=== PATIENT | male | born 1965 | race Caucasian/White ===

== ENCOUNTER 2018-05-29 19:08 | Inpatient (IN) | payer OTHER ==
[~2018-05-29] VITALS: Ht 167.6 cm; Wt 118.0 kg
[~2018-05-29 19:08] MED LIST: DICLOFENAC SODI75 M2 PO; ORPHENADRINE C100 MG PO
--- NOTE | 2018-05-29 19:24 | ED GI/GU/ABDOMINAL COMPLAINT ---
History of Present Illness General Chief Complaint: Abdominal Pain/Flank Pain Stated Complaint: "ABD PAIN, SOB" Source: patient Exam Limitations: no limitations Vital Signs & Intake/Output Vital Signs & Intake/Output Vital Signs Date Time Temp Pulse Resp B/P B/P Pulse O2 O2 Flow FiO2 Mean Ox Delivery Rate 05/30 0309 97.9 70 20 138/60 97 Room Air 05/30 0219 97.2 70 18 127/71 98 Room Air 05/30 0018 97 Room Air 05/30 0016 97.6 70 18 139/71 97 Room Air 05/29 2152 76 17 152/91 96 Room Air 05/29 1917 97.8 79 18 144/84 98 Room Air ED Intake and Output 05/30 0000 05/29 1200 Intake Total Output Total Balance Patient 254 lb Weight Weight Reported by Patient Measurement Method Allergies Coded Allergies: morphine (Mild, RASH 05/18/16) ziprasidone (RESTLESS LEGS WHEN TOTAL DAILY DOSE GIVEN AT BEDTIME 05/18/16) Reconcile Medications Allopurinol 100 MG TABLET 1 TAB PO QHS GOUT (Reported) Bupropion HCl (Wellbutrin XL) 150 MG TAB.ER.24H 1 TAB PO DAILY MENTAL HEALTH (Reported) Diclofenac Sodium 75 MG TABLET.DR 1 TAB PO BID PRN PAIN Ezetimibe (Zetia) 10 MG TABLET 1 TAB PO DAILY HEART HEALTH (Reported) Ibuprofen 800 MG TABLET 1 TAB PO QHS PRN RT SHOULDER PAIN (Reported) Meloxicam 7.5 MG TABLET 1 TAB PO DAILY PRN PAIN (Reported) Orphenadrine Citrate 100 MG TABLET.ER 1 TAB PO BID PRN MUSCLE PAIN/SPASMS Topiramate (Topamax) 25 MG TABLET 1 TAB PO BID MENTAL HEALTH (Reported) Triage Note: PT FROM HOME C/O BACK PAIN MID PAIN X3 DAYS RADIATING TO PTS ABD BILATERALLY, PT STATES SOB WHEN DEEP BREATHING. PT STATES TAKING 400MG MOTRIN PO X1 HR PRIOR WITHOUT RELIEF. PT STATES PAIN INCREASING FOR THE PAST 3X DAYS WITHOUT SEEING ANY OTHER PROVIDERS. Triage Nurses Notes Reviewed? yes Duration: day(s):, waxing and waning Timing: recent history Location: right upper quadrant Radiation: back Activities at Onset: none Prior Abdominal Problems: none Modifying Factors: Worsens With: palpation. Associated Symptoms: abdominal pain, nausea/vomiting HPI: 52 yo gentleman in prior good health presents with 3 days of right upper quadrant pain, mild nausea. "I took some tums... I thought it was gastritis... but the pain got worse." No fever, chills, chest pain, dyspnea. He is otherwise well. Past History Travel History Traveled to [place] past 21 day No Medical History Any Pertinent Medical History? see below for history Neurological: NONE EENT: NONE Cardiovascular: hypertension, hyperlipidemia Respiratory: NONE Gastrointestinal: NONE Hepatic: NONE Renal: NONE Musculoskeletal: fracture, sciatica, "BACK AND NECK PROBLEMS" FRACTURED JAW Psychiatric: bipolar disease, depression Endocrine: NONE Blood Disorders: NONE Surgical History Surgical History: non-contributory Psychosocial History What is your primary language Wolof Tobacco Use: Never used ETOH Use: denies use Family History Hx Contributory? No Review of Systems Review of Systems Constitutional: Reports: no symptoms. EENTM: Reports: no symptoms. Respiratory: Reports: no symptoms. Cardiovascular: Reports: no symptoms. GI: Reports: no symptoms. Genitourinary: Reports: no symptoms. Musculoskeletal: Reports: no symptoms. Skin: Reports: no symptoms. Neurological/Psychological: Reports: no symptoms. Hematologic/Endocrine: Reports: no symptoms. Immunologic/Allergic: Reports: no symptoms. All Other Systems: Reviewed and Negative Physical Exam Physical Exam General Appearance: well developed/nourished, mild distress Head: atraumatic, normal appearance Eyes: Bilateral: normal appearance. Ears, Nose, Throat, Mouth: hearing grossly normal, moist mucous membrane Neck: normal inspection, supple, full range of motion Respiratory: normal breath sounds, chest non-tender, no respiratory distress, quiet respiration, lungs clear Cardiovascular: regular rate/rhythm Gastrointestinal: tender at ruq, +juan's, no rlq tenderness. no rebound or guarding. Extremities: normal range of motion Neurologic/Psych: no motor/sensory deficits, awake, alert, oriented x 3 Skin: intact, normal color, warm/dry Core Measures ACS in differential dx? No Sepsis Present: No Sepsis Focused Exam Completed? No Progress Differential Diagnosis: cholecystitis vs other. Plan of Care: Orders Procedure Date/time Status Nothing by Mouth 05/30 B Active HEPATIC FUNCTION PANEL 05/30 600 Active CBC WITHOUT DIFFERENTIAL 05/30 600 Active BASIC ELECTROLYTES PLUS BUN&CR 05/30 600 Active Code Status 05/30 0158 Active Lab Add-on Test 05/30 0104 Active Intake & Output 05/30 0014 Active Pathway - chart 05/29 2357 Active House Staff 05/29 235 Active Patient Data 05/29 235 Active Code Status 05/29 235 Complete Saline Lock 05/29 2342 Active Misc Message 05/29 234 Active ED Holding Orders 05/29 2342 Active Admit to inpatient 05/29 234 Active Vital Signs 05/29 2342 Active Code Status 05/29 234 Complete Add-on Test (ER Only) 05/29 2228 Active TRIGLYCERIDES 05/29 1950 Complete LDH (LACT ACID DEHYDROGENASE) 05/29 1950 Complete ETHANOL 05/29 1950 Complete TROPONIN LEVEL 05/29 1919 Complete LIPASE 05/29 1919 Complete LACTIC ACID 05/29 1919 Complete HEPATIC FUNCTION PANEL 05/29 1919 Complete CBC WITHOUT DIFFERENTIAL 05/29 1919 Complete BASIC METABOLIC PANEL 05/29 1919 Complete AMYLASE 05/29 1919 Complete EKG 05/29 1910 Active VTE Mechanical Prophylaxis 05/29 UNK Active Current Medications Sig/Tatiana Start time Last Medication Dose Stop Time Status Admin Bupropion HCl 150 MG DAILY 05/30 900 AC (Wellbutrin XL) Enoxaparin Sodium 40 MG DAILY 05/30 900 AC (Lovenox) Ezetimibe 10 MG DAILY 05/30 900 AC (Zetia) Topiramate 25 MG BID 05/30 900 AC (Topamax) Lactated Ringer's 1,000 ML .Q6H40M 05/30 0315 AC 05/30 (Lactated Ringers) 0300 Hydromorphone HCl 0.2 MG Q4P PRN 05/30 0115 AC (Dilaudid) Hydromorphone HCl 0.4 MG Q4P PRN 05/30 0115 AC 05/30 (Dilaudid) 0313 Acetaminophen 650 MG Q6P PRN 05/29 2345 AC (Tylenol) Laboratory Tests 05/29/18 1950: Anion Gap 10, Estimated GFR > 60, BUN/Creatinine Ratio 24.4, Glucose 155 H, Lactic Acid 1.3, Calcium 9.4, Total Bilirubin 2.6 H, Direct Bilirubin 1.8 H, AST 268 H, ALT 289 H, Alkaline Phosphatase 102, Lactate Dehydrogenase 1016 H, Troponin I < 0.01, Total Protein 6.9, Albumin 4.1, Triglycerides 148, Amylase 3785 H, Lipase > 41372 H, CBC w Diff NO MAN DIFF REQ, RBC 5.16, MCV 86.9, MCH 29.7, MCHC 34.2, RDW 12.2, MPV 8.3, Gran % 70.9, Lymphocytes % 19.4 L, Monocytes % 8.5, Eosinophils % 0.9, Basophils % 0.3, Absolute Granulocytes 6.2, Absolute Lymphocytes 1.7, Absolute Monocytes 0.7 H, Absolute Eosinophils 0.1, Absolute Basophils 0, Serum Alcohol < 10.0 Diagnostic Imaging: Viewed by Me: CT Scan. Discussed w/RAD: CT Scan. Radiology Impression: PATIENT: ROJELIO JUNG PRESENT AGE: 52 PATIENT ACCOUNT NO: [id number] : 67 LOCATION: [facility] ORDERING PHYSICIAN: Mode Garg MD SERVICE DATE: 05/29/18 EXAM TYPE: CAT - CT ABD & PELVIS W IV CONTRAST EXAMINATION: CT ABDOMEN AND PELVIS WITH CONTRAST CLINICAL INFORMATION: Right upper quadrant pain COMPARISON: None TECHNIQUE: Multidetector volumetric imaging was performed of the abdomen and pelvis following IV administration of 95 mL of Optiray 320 intravenous contrast. Sagittal and coronal reformatted images were obtained on the technologist's workstation. DLP: 1237 mGy-cm FINDINGS: LUNG BASES: The visualized lung bases are unremarkable. LIVER, GALLBLADDER, AND BILIARY TREE: Liver is diffusely low in attenuation. No focal lesion identified. No intrahepatic biliary dilatation. The gallbladder is mildly distended. No wall edema or pericholecystic fluid. No radio dense gallstones. PANCREAS: Unremarkable. SPLEEN: The spleen is enlarged measuring 14.5 cm. ADRENAL GLANDS: Unremarkable. KIDNEYS AND URETERS: The kidneys are normal in size, shape, and attenuation. No hydronephrosis, hydroureter, or calculi seen. No perinephric stranding. BLADDER: Unremarkable. GASTROINTESTINAL TRACT: Small hiatal hernia is present. There are a few mildly prominent lymph nodes inferior to the gastroesophageal junction measuring up to approximately 0.7 cm in short axis diameter. There are no dilated loops of small or large bowel. The appendix is normal. No intra-abdominal free air or free fluid. ABDOMINAL WALL: No significant hernia is appreciated. LYMPH NODES: Normal. VASCULAR: Unremarkable. PELVIC VISCERA: Prostate and seminal vesicles appear within normal limits. OSSEOUS STRUCTURES: Unremarkable. IMPRESSION: 1. No convincing CT evidence for acute cholecystitis. No CT evidence for cholelithiasis. 2. Hepatic steatosis. 3. Splenomegaly. 4. Mild inflammatory changes adjacent to the gastroesophageal junction. Small hiatal hernia. DICTATED BY: Celia Orr MD DATE/TIME DICTATED:05/29/182212 SATURATION EQUIPMENT OPERATOR:JER DATE/TIME TRANSCRIBED:05/29/182212 CONFIDENTIAL, DO NOT COPY WITHOUT APPROPRIATE AUTHORIZATION. <Electronically signed in Other Vendor System> SIGNED BY: Celia Orr MD 05/29/182220 Initial ED EKG: sinus, no acute changes Departure Departure Disposition: STILL A PATIENT Condition: Stable Clinical Impression Primary Impression: Pancreatitis Secondary Impressions: Elevated LFTs Referrals: Lamont Aquino MD (PCP/Family) Departure Forms: Customer Survey General Discharge Information Admission Note Spoke With: Lamont Aquino MD Documentation of Exam: Documentation of any treatments & extenuating circumstances including Concerns Regarding Discharge (functional status, medication knowledge or non-compliance, living conditions, etc.) that warrant an admission rather than observation: pt with pancreatitis, lipase >10,000... ct scan not suggestive of gallstones. pt is non drinking. triglycerides normal. pt merits iv fluids, gi consult in AM.
[2018-05-29 19:58] LABS: ABSOLUTE BASOPHIL COUNT 0 /CUMM (0.0-0.2); ABSOLUTE EOSINOPHIL COUNT 0.1 /CUMM (0.0-0.7); ABSOLUTE GRANULOCYTE CT 6.2 /CUMM (1.4-6.5); ABSOLUTE LYMPH COUNT 1.7 /CUMM (1.2-3.4); ABSOLUTE MONOCYTE COUNT 0.7 /CUMM (0.10-0.60); BASOPHIL % 0.3 % (0.0-2.0); EOSINOPHIL % 0.9 % (0-5); GRANULOCYTE % 70.9 % (42.2-75.2); HEMATOCRIT 44.8 % (42-52); MEAN CORPUSCULAR HGB 29.7 PG (27.0-31.0); MEAN CORPUSCULAR HGB CONC 34.2 G/DL (33.0-37.0); MEAN CORPUSCULAR VOLUME 86.9 FL (80.0-94.0); MEAN PLATELET VOLUME 8.3 FL (7.4-10.4); PLATELET COUNT 220 /CUMM (130-400); RBC DISTRIBUTION WIDTH 12.2 % (11.5-14.5); RED BLOOD CELL CT 5.16 /CUMM (4.70-6.10); WHITE BLOOD CELL COUNT 8.7 /CUMM (4.8-10.8)
--- NOTE | 2018-05-29 22:21 | CT SCAN REPORT ---
EXAMINATION: CT ABDOMEN AND PELVIS WITH CONTRAST CLINICAL INFORMATION: Right upper quadrant pain COMPARISON: None TECHNIQUE: Multidetector volumetric imaging was performed of the abdomen and pelvis following IV administration of 95 mL of Optiray 320 intravenous contrast. Sagittal and coronal reformatted images were obtained on the technologist's workstation. DLP: 1237 mGy-cm FINDINGS: LUNG BASES: The visualized lung bases are unremarkable. LIVER, GALLBLADDER, AND BILIARY TREE: Liver is diffusely low in attenuation. No focal lesion identified. No intrahepatic biliary dilatation. The gallbladder is mildly distended. No wall edema or pericholecystic fluid. No radio dense gallstones. PANCREAS: Unremarkable. SPLEEN: The spleen is enlarged measuring 14.5 cm. ADRENAL GLANDS: Unremarkable. KIDNEYS AND URETERS: The kidneys are normal in size, shape, and attenuation. No hydronephrosis, hydroureter, or calculi seen. No perinephric stranding. BLADDER: Unremarkable. GASTROINTESTINAL TRACT: Small hiatal hernia is present. There are a few mildly prominent lymph nodes inferior to the gastroesophageal junction measuring up to approximately 0.7 cm in short axis diameter. There are no dilated loops of small or large bowel. The appendix is normal. No intra-abdominal free air or free fluid. ABDOMINAL WALL: No significant hernia is appreciated. LYMPH NODES: Normal. VASCULAR: Unremarkable. PELVIC VISCERA: Prostate and seminal vesicles appear within normal limits. OSSEOUS STRUCTURES: Unremarkable. IMPRESSION: 1. No convincing CT evidence for acute cholecystitis. No CT evidence for cholelithiasis. 2. Hepatic steatosis. 3. Splenomegaly. 4. Mild inflammatory changes adjacent to the gastroesophageal junction. Small hiatal hernia.
--- NOTE | 2018-05-29 23:49 | History & Physical ---
See Addendum Tamika Lopez 05/29/18 6059: General Information and HPI MD Statement: I have seen and personally examined ROJELIO JUNG and documented this H&P. The patient is a 52 year old M who presented with a patient stated chief complaint of [back pain and abdominal pain 3 days]. Source of Information: patient Exam Limitations: no limitations History of Present Illness: 52-year-old male with a past medical history of hypertension, cardiac arrhythmia , TIA, cocaine abuse, hypercholesterolemia, bipolar disorder, asthma, presented to the emergency department for evaluation of abdominal and back pain 3 days. The patient states that 3 days ago he started having a severe back pain, which was sudden in onset, intensity 10 x 10, throbbing aching and stabbing, worsening with time, moving to the side of his body to his belly, worse on taking a deep breath, not relieved by ibuprofen 800 mg. It was so bad that it prevented him from walking and he was in bed all day on his side and he could not lay on flat on his back He also developed epigastric pain on day 2, sudden in onset, which was achy and became stabbing on taking a deep breath or breathing rapidly, 10 x 10 in intensity, radiating to the back. Patient reports eating a lot of fried food, last meal was fried chicken from [employer]. He denies use of smoking/alcohol/illicit drugs. Patient denies nausea , vomiting, fever, chills, loss of appetite, change in bowel or bladder habits, change in vision, change in hearing. Please note allergies: Morphine been given IV causes a local reaction at the site of the IV line: Redness and swelling. He reports this reaction in the Allergies/Medications Allergies: Coded Allergies: morphine (Mild, RASH 05/18/16) ziprasidone (RESTLESS LEGS WHEN TOTAL DAILY DOSE GIVEN AT BEDTIME 05/18/16) Past History Travel History Traveled to [place] past 21 day No Medical History Neurological: NONE EENT: NONE Cardiovascular: hypertension, hyperlipidemia Respiratory: NONE Gastrointestinal: NONE Hepatic: NONE Renal: NONE Musculoskeletal: fracture, sciatica, "BACK AND NECK PROBLEMS" FRACTURED JAW Psychiatric: bipolar disease, depression Endocrine: NONE Blood Disorders: NONE Surgical History Surgical History: non-contributory Past Family/Social History Family History Relations & Conditions if any FH: diabetes mellitus Relation not specified FHx: heart disease Relation not specified FHx: hypertension Relation not specified FHx: stroke Relation not specified Psychosocial History Where do you live? Home Who Do You Live With? family Services at Home: None Primary Language: Irish Smoking Status: Never Smoked ETOH Use: denies use Illicit Drug Use: denies illicit drug use Functional Ability ADLs Independent: dressing, eating, toileting, bathing. Ambulation: independent IADLs Independent: shopping, housework, finances, food prep, telephone, transportation , medication admin. Employment History Employment Employed Review of Systems Review of Systems Constitutional: Reports: see HPI. EENTM: Reports: no symptoms. Cardiovascular: Reports: no symptoms. Respiratory: Reports: see HPI. GI: Reports: see HPI. Genitourinary: Reports: no symptoms. Musculoskeletal: Reports: no symptoms. Skin: Reports: no symptoms. Neurological/Psychological: Reports: no symptoms. Hematologic/Endocrine: Reports: no symptoms. Immunologic/Allergic: Reports: no symptoms. All Other Systems: Reviewed and Negative Exam & Diagnostic Data Last 24 Hrs of Vital Signs/I&O Vital Signs Date Time Temp Pulse Resp B/P B/P Pulse O2 O2 Flow FiO2 Mean Ox Delivery Rate 05/30 0219 97.2 70 18 127/71 98 Room Air 05/30 0018 97 Room Air 05/30 0016 97.6 70 18 139/71 97 Room Air 05/29 2152 76 17 152/91 96 Room Air 05/29 1917 97.8 79 18 144/84 98 Room Air Intake & Output 05/30 0800 05/30 0000 05/29 1600 Intake Total 0 Output Total Balance 0 Intake, Oral 0 Patient 254 lb Weight Weight Reported by Patient Measurement Method Physical Exam General Appearance Alert, Oriented X3, Cooperative, No Acute Distress Skin No Rashes, No Breakdown, No Significant Lesion Skin Temp/Moisture Exam: Cool/Dry Sepsis Skin Exam (color): Normal for Ethnicity HEENT Atraumatic, PERRLA, EOMI, Mucous Membr. moist/pink Neck Supple, No JVD, No thryomegaly, +2 Carotid Pulse wo Bruit, No LAD Cardiovascular Regular Rate, Normal S1, Normal S2, No Murmurs Lungs Clear to Auscultation, Normal Air Movement Abdomen Normal Bowel Sounds, Soft, No Tenderness, No Hepatospenomegaly, No Masses Neurological Normal Speech, Normal Tone, Sensation Intact, Reflexes 2+ Extremities No Clubbing, No Cyanosis, No Edema, Normal Pulses, No Tenderness/ Swelling Assessment/Plan Assessment: 52-year-old male with a past medical history of hypertension, cardiac arrhythmia , TIA, cocaine abuse, hypercholesterolemia, bipolar disorder, asthma, presented to the emergency department for evaluation of abdominal and back pain 3 days. Vital signs: Temp 97.8, heart rate 79, respiratory rate 18, blood pressure 144/ 84, 98% room air Pertinent labs: WBC 8.7, RBC 5.16, hemoglobin 15.3, hematocrit 44.8, platelets 220, sodium 139, potassium 4.0, chloride 109, carbon dioxide 20, anion gap 10, BUN 22, creatinine 0.9, lipase more than 10,000, amylase 3785, glucose 155, total bilirubin 2.6, direct bilirubin 1.8, AST, 268, ALT 289, serum alcohol less than 10 Abdomen/pelvis CT: No convincing CT evidence for acute cholecystitis and no evidence of cholelithiasis as well. hepatic steatosis and splenomegaly were seen. mild inflammatory changes adjacent to the GE junction and small hiatal hernia Problems: Pancreatitis Transaminitis Hypertension Assessment and plan: 1.pancreatitis: Patient presents with an epigastric pain radiating to the back, lipase more than 10,000 and amylase 3785. Patient has pancreatitis as the most likely diagnosis. The etiology for the pancreatitis appears to be fried and fatty food at this time. -Admit patient to the general medical floor -Keep patient n.p.o. -Start IV fluids Ringer's lactate at 1 50 mL/h, monitor blood pressure -Supportive care and pain management(Dilaudid) 2.transaminitis: Patient has transaminitis with AST 268, ALT 289, total bilirubin 2.6, direct bilirubin 1.8. The cause of the transaminitis is unknown at this time we will follow the labs by repeating the LFTs in the morning at 6 AM. If the patient still shows transaminitis as per the blood work we might consider doing viral serologies/hepatitis panel and a right upper quadrant ultrasound. 3.hypertension: The patient's blood pressure appears stable at this time (144/84 ). Patient does not report any home medications for blood pressure. With Ringer's lactate patient has risk of having elevation of blood pressure. Vitals and blood pressure will be monitored during his hospital stay. DVT prophylaxis: Lovenox 40 mg subcu Diet: N.p.o. CODE STATUS: DNR/DNI As Ranked By This Provider Problem List: 1. Pancreatitis Core Measures/Misc (06/13) Acute Coronary Syndrome ACS Diagnosis: No Congestive Heart Failure Congestive Heart Failure Diagnosis No Cerebrovascular Accident CVA/TIA Diagnosis: No VTE (View Protocol) VTE Risk Factors Age>40 No Mechanical VTE Prophylaxis d/t N/A MechProphylax Ordered No VTE Pharm Prophylaxis d/t NA PharmProphylax ordered Sepsis (View protocol) Sepsis Present: No If YES complete Sepsis Event Note If YES complete Sepsis Event Note Wilberto Tello MD 05/30/18 0130: General Information and HPI Allergies/Medications Home Med list Allopurinol 100 MG TABLET 1 TAB PO QHS GOUT (Reported) Bupropion HCl (Wellbutrin XL) 150 MG TAB.ER.24H 1 TAB PO DAILY MENTAL HEALTH (Reported) Diclofenac Sodium 75 MG TABLET.DR 1 TAB PO BID PRN PAIN Ezetimibe (Zetia) 10 MG TABLET 1 TAB PO DAILY HEART HEALTH (Reported) Ibuprofen 800 MG TABLET 1 TAB PO QHS PRN RT SHOULDER PAIN (Reported) Meloxicam 7.5 MG TABLET 1 TAB PO DAILY PRN PAIN (Reported) Orphenadrine Citrate 100 MG TABLET.ER 1 TAB PO BID PRN MUSCLE PAIN/SPASMS Topiramate (Topamax) 25 MG TABLET 1 TAB PO BID MENTAL HEALTH (Reported) Core Measures/Misc (06/13) Sepsis (View protocol) If YES complete Sepsis Event Note If YES complete Sepsis Event Note Resident Review Statement Resident Statement: examined this patient, discussed with internet marketing director, reviewed EMR data (avail) Other Findings: 52 yo M with PMH of hypertension, hyperlipidemia, TIA presented to the ED for evaluation of abdominal and back pain persisting for the past 3 days. The patient states that prior to that he was in his usual state of health. On Wednesday , he started experiencing epigastric pain with radiation to his back which progressively worsened over Wednesday. He describes the pain as sharp/stabbing 10 /10 in severity, aggravated with lying flat and deep breaths, with no significant relieving factors. He tried motrin but didn't find any relief. He denies any associated nausea or vomiting but feels like it was getting there. His last meal prior to his symptoms consisted of fried chicken. He denies any prior similar episodes or family history of pancreatitis. He denies smoking or drinking alcohol. ROS: significant for abdominal and back pain Physical Exam: General Appearance: well developed/nourished, alert, awake, mild distress Head: atraumatic, normal appearance Eyes: bilateral: normal appearance and PERRLA. Ears, Nose, Throat, Mouth: hearing and speech normal, no sinus tenderness Respiratory: normal breath sounds, chest non-tender, no respiratory distress, lungs clear Cardiovascular: regular rate/rhythm, normal S1 and S2 Gastrointestinal: soft, epigastric tenderness Extremities: no edema Skin: normal inspection Labs showed an extremely elevated lipase of >10,000, total bilirubin 2.6, direct bili 1.8, AST 268, ALT 289. His triglycerides were wnl. CT Abd/Pelvis did not reveal any signs of acute pancreatitis. Assessment: 1. Acute Pancreatits 2. Elevated LFTs 3. History of Hypertension, Hyperlipidemia Plan: * Admit patient to general medicine floor. * Hydrate with LR @ 150ml/hr. If blood pressure rises, will consider going down on the rate. * Pain control with IV dilaudidd. Patient states getting a bothersome rash with morphine. * He will need to be on a low fat diet. * The transaminitis is unclear in etiology at this time. Would repeat them in the am. If LFTs continue to be elevated would consider RUQ U/S and checking hepatitis serologies. * Diet: NPO for now. * DVT Prophylaxis: SC Lovenox * Code: DNR/DNI
[2018-05-30] MEDS ORDERED: TOPAMAX25 M3 PO (00:21)
[2018-05-30] MEDS ORDERED: ZETIA10 M1 PO (00:22)
[2018-05-30] MEDS ORDERED: WELLBUTRIN XL150 M2 PO (00:22)
[2018-05-30] MEDS ORDERED: ALLOPURINOL100 M1 PO (00:22)
[2018-05-30] MEDS ORDERED: MELOXICAM7.5 M1 PO (00:23)
[2018-05-30] MEDS ORDERED: IBUPROFEN800 M1 PO (00:24)
[2018-05-30 03:09] VITALS: BP 138/60
[2018-05-30 06:53] VITALS: BP 132/82
--- NOTE | 2018-05-30 07:42 | PN- Housestaff ---
Subjective Follow-up For: Abdominal pain Subjective: Seen and examined at bedside. Denies chill/fever, n/v. reports epigastric abdominal pain improved after pain meds. Afebrile o/n. Still Npo on LR 150 ML/H Review of Systems Constitutional: Reports: see HPI. Objective Last 24 Hrs of Vital Signs/I&O Vital Signs Date Time Temp Pulse Resp B/P B/P Pulse O2 O2 Flow FiO2 Mean Ox Delivery Rate 05/30 0800 Room Air 05/30 0653 97.9 72 20 132/82 96 Room Air 05/30 0309 97.9 70 20 138/60 97 Room Air 05/30 0219 97.2 70 18 127/71 98 Room Air 05/30 0018 97 Room Air 05/30 0016 97.6 70 18 139/71 97 Room Air 05/29 2152 76 17 152/91 96 Room Air 05/29 1917 97.8 79 18 144/84 98 Room Air Intake & Output 05/30 1600 05/30 0800 05/30 0000 Intake Total 365 Output Total Balance 365 Intake, IV 365 Intake, Oral 0 Number 0 Bowel Movements Patient 118.047 kg 115.212 kg Weight Weight Reported by Patient Reported by Patient Measurement Method Physical Exam General Appearance: Alert, Oriented X3, Cooperative Skin: No Significant Lesion, non jaundiced Cardiovascular: Regular Rate, Normal S1, Normal S2 Lungs: Clear to Auscultation, Normal Air Movement Abdomen: Normal Bowel Sounds, tenderness on right md to upper qidrant, no rebound tenderness Neurological: Normal Gait, Normal Speech, Strength at 5/5 X4 Ext Assessment/Plan Assessment: 52-year-old male with a past medical history of hypertension, cardiac arrhythmia , TIA, cocaine abuse, hypercholesterolemia, bipolar disorder, asthma, presented to the emergency department for evaluation of abdominal and back pain 3 days. Vital signs: Temp 97.8, heart rate 79, respiratory rate 18, blood pressure 144/ 84, 98% room air Pertinent labs: WBC 8.7, RBC 5.16, hemoglobin 15.3, hematocrit 44.8, platelets 220, sodium 139, potassium 4.0, chloride 109, carbon dioxide 20, anion gap 10, BUN 22, creatinine 0.9, lipase more than 10,000, amylase 3785, glucose 155, total bilirubin 2.6, direct bilirubin 1.8, AST, 268, ALT 289, serum alcohol less than 10 Abdomen/pelvis CT: No convincing CT evidence for acute cholecystitis and no evidence of cholelithiasis as well. hepatic steatosis and splenomegaly were seen. mild inflammatory changes adjacent to the GE junction and small hiatal hernia Problems: Pancreatitis Hyperbilirubinemia Transaminitis Hypertension Assessment and plan Patient is presenting with clinical and laboratory signs suggestive of pancreatitis (stereotypical epigastric pain with radiation to the back, and elevated lipase levels). He however does not show any radiological signs of an inflamed pancreas based on the CT abdomen. On presentation he has a BISAP score of 0 signifying less than 1% motility risk. The 2 most common causes of pancreatitis are gallstones and EtOH. Patient denies the latter, and the CT imaging is not remarkable for any gallstones or inflamed gallbladder (this modality is not ideal to exclude gall stones). However, an abdominal ultrasound will be more sensitive to assess for gall stones and acute biliary pathology. His complaints of pain while taking deep breath is concerning for pleuritis versus pleural effusions. He is however saturating well on room air and therefore less likely to have more serious presentation such as PE. For now we will continue with bowel rest, lactated Ringer 150ml/hr. On presentation his BUN was 22 which could be a poor prognostic factor in pancreatitis as this signifies hemoconcentration. However, his BUN today has improved and is 16 therefore will continue to watch for hemoconcentration. His chest x-ray is free of pleural effusions. He does have elevated bilirubin levels with an increased ratio of direct, even though his alk phosphatase is normal. There is concern of extrahepatic biliary obstruction, currently he is afebrile with no leukocytosis , threrefore we are less worried about cholangatis. We will obtain an abdominal ultrasound to further assess gallbladder and the presence of any gallstones, ideally patient will benefit from an MRCP. Will obtain CRP for prognostication and continue to trend Hepatic liver function. For his pain will continue with hydromorphone. Later in the evening if patient's symptoms improve and abdominal u/s is benign, we will consider advancing his diet to clears as early enterofeeding has been shown to be beneficial. If patient's clinical situation deteriorates or develope fevers, we will need to obtain an mrcp/ercp. Problem List: 1. Pancreatitis Pain Ratin Pain Location: epigastric pain Pain Goal: Pain 4 or less Pain Plan: per pathway Tomorrow's Labs & Rationales: cbc bep crp
[2018-05-30 07:54] LABS: ABSOLUTE BASOPHIL COUNT 0 /CUMM (0.0-0.2); ABSOLUTE EOSINOPHIL COUNT 0.1 /CUMM (0.0-0.7); ABSOLUTE GRANULOCYTE CT 3.6 /CUMM (1.4-6.5); ABSOLUTE LYMPH COUNT 1.4 /CUMM (1.2-3.4); ABSOLUTE MONOCYTE COUNT 0.5 /CUMM (0.10-0.60); BASOPHIL % 0.3 % (0.0-2.0); GRANULOCYTE % 64.3 % (42.2-75.2); HEMATOCRIT 41.3 % (42-52); MEAN CORPUSCULAR HGB 30.2 PG (27.0-31.0); MEAN CORPUSCULAR HGB CONC 34.3 G/DL (33.0-37.0); MEAN PLATELET VOLUME 8.6 FL (7.4-10.4); PLATELET COUNT 165 /CUMM (130-400); RBC DISTRIBUTION WIDTH 12.7 % (11.5-14.5); RED BLOOD CELL CT 4.69 /CUMM (4.70-6.10); WHITE BLOOD CELL COUNT 5.7 /CUMM (4.8-10.8)
--- NOTE | 2018-05-30 11:19 | RADIOLOGY REPORT ---
EXAMINATION: XR CHEST CLINICAL INFORMATION: Pleuritic pain, pancreatitis. Presumptive diagnosis of pleurisy versus pneumonia versus pleural effusion. COMPARISON: Chest x-ray dated 02/04/2018. CT scan of the abdomen dated 05/29/2018. TECHNIQUE: 2 views of the chest were obtained. FINDINGS: The cardiomediastinal silhouette is within normal limits in size. Lungs bilaterally are symmetrically expanded and clear. No focal consolidation, effusion or pneumothorax is seen. Bony structures are unremarkable. IMPRESSION: Unremarkable examination. No evidence of pleural effusion or pneumonia.
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
--- NOTE | 2018-05-30 13:27 | Admission Certification ---
Admission Certification Certification Statement - As attending physician, I certify that at the time of - admission, based on clinical presentation, severity of - symptoms, need for further diagnostic testing and - therapeutic interventions, and risk of adverse outcomes - without in-hospital treatment, in my clinical assessment, - this patient requires an acute hospital stay for a minimum - of two nights or longer. I have also considered psychsocial - factors such as support system, advanced age, financial - issues, cognitive issues, and failed out-patient treatments, - past re-admission history, safety of patient, and lack of - compliance as applicable. Specific rationale supporting this admission is: Abdominal and back pain, abnormal liver function tests and pancreatitis
--- NOTE | 2018-05-30 13:30 | PN- Att Addend ---
Attending Addendum Attending Brief Note 52-year-old white male has not been feeling well for the last 3 days complaining of some back pain and radiates anteriorly some difficulty breathing with deep inspiration. No nausea no vomiting no diarrhea. Patient denies any alcohol use but stated he has been eating a lot of fried foods, he comes to the emergency room was examined tests were performed his white count is 8700 his lipase more than 10,000, amylase 3785 glucose 155, AST 268 ALT 289. The CAT scan of the abdomen showed no definite cartilage diagnosis of cholecystitis but some fatty liver and splenomegaly. Patient was admitted was given analgesics kept n.p.o. follow closely his blood work and have a GI evaluation. 24 TOTALS 05/30 0000 05/29 0000 Intake Total Output Total Balance Patient 254 lb Weight Weight Reported by Patient Measurement Method Current Medications Sig/Tatiana Start time Last Medication Dose Route Stop Time Status Admin Acetaminophen 650 MG Q6P PRN 05/29 2345 AC PO Bupropion HCl 150 MG DAILY 05/30 900 AC 05/30 PO 0931 Enoxaparin Sodium 40 MG DAILY 05/30 900 AC 05/30 SC 0932 Ezetimibe 10 MG DAILY 05/30 900 AC 05/30 PO 0931 Hydromorphone HCl 0.2 MG Q4P PRN 05/30 0115 AC IV Hydromorphone HCl 0.4 MG Q4P PRN 05/30 0115 AC 05/30 IV 0931 Hydromorphone HCl 0 .STK-MED ONE 05/29 2001 DC .ROUTE Hydromorphone HCl 1 MG ONCE ONE 05/29 1930 DC 05/29 IV 05/29 Hydroxyzine HCl 25 MG TID PRN 05/30 1315 AC PO Lactated Ringer's 1,000 ML .Q6H40M 05/30 0315 AC 05/30 IV 1001 Lactated Ringer's 1,000 ML .Q6H40M 05/30 0115 DC IV Morphine Sulfate 2 MG Q6P PRN 05/29 234 DC IV Morphine Sulfate 1 MG Q6P PRN 05/29 2345 DC IV Sodium Chloride 3,456.36 ML ONCE ONE 05/29 1930 DC 05/29 IV 05/29 Topiramate 25 MG BID 05/30 900 AC 05/30 PO 0930 Laboratory Tests 05/30/18 0610: Anion Gap 6, Estimated GFR > 60, BUN/Creatinine Ratio 16.0, Total Bilirubin 3.2 H, Direct Bilirubin 2.4 H, AST 349 H, ALT 436 H, Alkaline Phosphatase 88, Total Protein 6.1 L, Albumin 3.5, CBC w Diff NO MAN DIFF REQ, RBC 4.69 L, MCV 88.0, MCH 30.2, MCHC 34.3, RDW 12.7, MPV 8.6, Gran % 64.3, Lymphocytes % 25.2, Monocytes % 8.2, Eosinophils % 2.0, Basophils % 0.3, Absolute Granulocytes 3.6, Absolute Lymphocytes 1.4, Absolute Monocytes 0.5, Absolute Eosinophils 0.1, Absolute Basophils 0, Hepatitis A IgM Ab NONREACTIVE, Hep Bs Antigen NONREACTIVE , Hep B Core IgM Ab Conf NONREACTIVE, Hepatitis C Antibody NONREACTIVE 05/29/18 1950: Anion Gap 10, Estimated GFR > 60, BUN/Creatinine Ratio 24.4, Glucose 155 H, Lactic Acid 1.3, Calcium 9.4, Total Bilirubin 2.6 H, Direct Bilirubin 1.8 H, AST 268 H, ALT 289 H, Alkaline Phosphatase 102, Lactate Dehydrogenase 1016 H, Troponin I < 0.01, Total Protein 6.9, Albumin 4.1, Triglycerides 148, Amylase 3785 H, Lipase > 04323 H, CBC w Diff NO MAN DIFF REQ, RBC 5.16, MCV 86.9, MCH 29.7, MCHC 34.2, RDW 12.2, MPV 8.3, Gran % 70.9, Lymphocytes % 19.4 L, Monocytes % 8.5, Eosinophils % 0.9, Basophils % 0.3, Absolute Granulocytes 6.2, Absolute Lymphocytes 1.7, Absolute Monocytes 0.7 H, Absolute Eosinophils 0.1, Absolute Basophils 0, Serum Alcohol < 10.0 Vital Signs Date Time Temp Pulse Resp B/P B/P Pulse O2 O2 Flow FiO2 Mean Ox Delivery Rate 05/30 0800 Room Air 05/30 0653 97.9 72 20 132/82 96 Room Air 05/30 0309 97.9 70 20 138/60 97 Room Air 05/30 0219 97.2 70 18 127/71 98 Room Air 05/30 0018 97 Room Air 05/30 0016 97.6 70 18 139/71 97 Room Air 09/02 2152 76 17 152/91 96 Room Air 05/29 1917 97.8 79 18 144/84 98 Room Air
[2018-05-30 14:45] VITALS: BP 138/84
[2018-05-30 21:50] VITALS: BP 128/80
[2018-05-31 06:33] VITALS: BP 124/78
--- NOTE | 2018-05-31 07:22 | PN- Housestaff ---
Subjective Follow-up For: Pancreatitis Subjective: Seen and examined while laying comfortably in bed. Reports marked improvement, abdominal pain markedly reduced Afebrile o/n, no hypotension or latered mental status reported. Awaiting u/s. He is allergic to morphine/hydromorphine (rash). Objective Last 24 Hrs of Vital Signs/I&O Vital Signs Date Time Temp Pulse Resp B/P B/P Pulse O2 O2 Flow FiO2 Mean Ox Delivery Rate 05/31 08 Room Air 05/31 0633 98.2 84 18 124/78 96 Room Air 05/30 2150 97.6 72 18 128/80 97 05/30 1445 97.3 72 18 138/84 96 Intake & Output 05/31 1600 05/31 0800 05/31 0000 Intake Total 1999 1000 Output Total Balance 1999 1000 Intake, IV 1999 1000 Patient 118.047 kg Weight Physical Exam General Appearance: Alert, Oriented X3, Cooperative Skin: No Rashes, non jaundiced Cardiovascular: Regular Rate, Normal S1, Normal S2 Lungs: Clear to Auscultation, Normal Air Movement Abdomen: Normal Bowel Sounds, Soft, No Tenderness Neurological: Normal Gait, Normal Speech, Strength at 5/5 X4 Ext Assessment/Plan Assessment: 52-year-old male with a past medical history of hypertension, cardiac arrhythmia , TIA, cocaine abuse, hypercholesterolemia, bipolar disorder, asthma, presented to the emergency department for evaluation of abdominal and back pain 3 days. Vital signs: Temp 97.8, heart rate 79, respiratory rate 18, blood pressure 144/ 84, 98% room air Pertinent labs: WBC 8.7, RBC 5.16, hemoglobin 15.3, hematocrit 44.8, platelets 220, sodium 139, potassium 4.0, chloride 109, carbon dioxide 20, anion gap 10, BUN 22, creatinine 0.9, lipase more than 10,000, amylase 3785, glucose 155, total bilirubin 2.6, direct bilirubin 1.8, AST, 268, ALT 289, serum alcohol less than 10 Abdomen/pelvis CT: No convincing CT evidence for acute cholecystitis and no evidence of cholelithiasis as well. hepatic steatosis and splenomegaly were seen. mild inflammatory changes adjacent to the GE junction and small hiatal hernia Problems: Pancreatitis Hyperbilirubinemia Transaminitis Hypertension Assessment and plan 52 yo male presented with clinical and laboratory signs suggestive of pancreatitis (stereotypical epigastric pain with radiation to the back, and elevated lipase levels). He however dID not show any radiological signs of an inflamed pancreas based on the CT abdomen with IV contrast (albeit this is a poor modality to assess gall stones). On presentation he had a BISAP score of 0 signifying less than 1% motility risk. The 2 most common causes of pancreatitis are gallstones and EtOH. Patient denies the latter. An U/S obtained today was unremarkable for gall stones, cholecystitis or CBD. However, his total and more significantly his direct total bilirubin is increasing with a now new elevated ALK phos level. There is concern of extrahepatic biliary obstruction. Currently he is afebrile, intact mental status, normotensive with no leukocytosis, threrefore we are less worried about cholangatis. However, pt will benefit from an MRCP/ERCP in the context of rising direct bili and alk phos levels. His 24- 48h CRP is elevated at 9, which can be viewed as a poor prognostic indicator. Logisitically, we are unable to obtain an MRCP today. We will await further GI reccomendation and only restart diet if no plan for an MRCP/ERCP. For now we will continue with LR at 200 ml/hr, and monitor for hemoconcentration. We will continue to trend LFTs. Tramadol prn for pain (pt is allergic to morphine/ hydromorphone, and also has a hx of drug abuse). Clinically, he appears in less distress compared to yesterday. Problem List: 1. Pancreatitis
[2018-05-31 07:58] LABS: ABSOLUTE BASOPHIL COUNT 0 /CUMM (0.0-0.2); ABSOLUTE EOSINOPHIL COUNT 0.1 /CUMM (0.0-0.7); ABSOLUTE GRANULOCYTE CT 3.8 /CUMM (1.4-6.5); ABSOLUTE LYMPH COUNT 1.7 /CUMM (1.2-3.4); ABSOLUTE MONOCYTE COUNT 0.5 /CUMM (0.10-0.60); BASOPHIL % 0.3 % (0.0-2.0); EOSINOPHIL % 1.2 % (0-5); GRANULOCYTE % 63.1 % (42.2-75.2); HEMATOCRIT 41.2 % (42-52); MEAN CORPUSCULAR HGB 30.1 PG (27.0-31.0); MEAN CORPUSCULAR HGB CONC 34.5 G/DL (33.0-37.0); MEAN CORPUSCULAR VOLUME 87.3 FL (80.0-94.0); MEAN PLATELET VOLUME 8.4 FL (7.4-10.4); PLATELET COUNT 181 /CUMM (130-400); RBC DISTRIBUTION WIDTH 12.5 % (11.5-14.5); RED BLOOD CELL CT 4.72 /CUMM (4.70-6.10); WHITE BLOOD CELL COUNT 6.1 /CUMM (4.8-10.8)
[2018-05-31 08:22] LABS: PT 12.9 SEC (9.4-12.5)
--- NOTE | 2018-05-31 09:03 | ULTRASOUND REPORT ---
EXAMINATION: US ABDOMEN LIMITED CLINICAL INFORMATION: Signs and symptoms of pancreatitis. COMPARISON: None TECHNIQUE: Real-time imaging of the right upper quadrant abdominal viscera. FINDINGS: PANCREAS: Normal. LIVER: Normal. The liver demonstrates normal size, contour and echogenicity. No focal lesion or intrahepatic biliary duct dilatation. GALLBLADDER: Normal. The gallbladder is physiologically distended without evidence of stones, sludge, polyps, wall thickening or pericholecystic fluid. Sonographic Laura sign is negative. COMMON BILE DUCT: Normal in caliber measuring 0.7 cm in diameter. RIGHT KIDNEY: Normal. No hydronephrosis. No renal calculi or focal parenchymal lesions. The kidney measures 11.7 cm in maximum dimension. FREE FLUID: None. IMPRESSION: * Hepatic steatosis. * No cholelithiasis.
--- NOTE | 2018-05-31 09:52 | PN- Att Addend ---
Attending Addendum Attending Brief Note Patient in bed ,pain a little less this AM.Appreciate GI imput and recomendations. Vital signs are stable, no fever.no major changes on physical. had US this AM, showed hepatic fat no cholelithiasis. WBC 6.1.To continue present treatment follow labs and GIs recommendations. 24 TOTALS 05/31 0000 05/30 0000 Intake Total 2415 Output Total Balance 2415 Intake, IV 2415 Intake, Oral 0 Number 0 Bowel Movements Patient 260 lb 254 lb Weight Weight Reported by Patient Reported by Patient Measurement Method Laboratory Tests 05/31/18 0616: Anion Gap 9, Estimated GFR > 60, BUN/Creatinine Ratio 12.2, Total Bilirubin 4.9 H, Direct Bilirubin 3.7 H, AST 289 H, ALT 539 H, Alkaline Phosphatase 139 H, C-React Prot High Sens 9.2 H, Total Protein 6.2 L, Albumin 3.5, PT 12.9 H, INR 1.18 H, CBC w Diff NO MAN DIFF REQ, RBC 4.72, MCV 87.3, MCH 30.1, MCHC 34.5 , RDW 12.5, MPV 8.4, Gran % 63.1, Lymphocytes % 27.6, Monocytes % 7.8, Eosinophils % 1.2, Basophils % 0.3, Absolute Granulocytes 3.8, Absolute Lymphocytes 1.7, Absolute Monocytes 0.5, Absolute Eosinophils 0.1, Absolute Basophils 0 05/30/18 0610: Anion Gap 6, Estimated GFR > 60, BUN/Creatinine Ratio 16.0, Total Bilirubin 3.2 H, Direct Bilirubin 2.4 H, AST 349 H, ALT 436 H, Alkaline Phosphatase 88, Total Protein 6.1 L, Albumin 3.5, CBC w Diff NO MAN DIFF REQ, RBC 4.69 L, MCV 88.0, MCH 30.2, MCHC 34.3, RDW 12.7, MPV 8.6, Gran % 64.3, Lymphocytes % 25.2, Monocytes % 8.2, Eosinophils % 2.0, Basophils % 0.3, Absolute Granulocytes 3.6, Absolute Lymphocytes 1.4, Absolute Monocytes 0.5, Absolute Eosinophils 0.1, Absolute Basophils 0, Hepatitis A IgM Ab NONREACTIVE, Hep Bs Antigen NONREACTIVE , Hep B Core IgM Ab Conf NONREACTIVE, Hepatitis C Antibody NONREACTIVE 05/29/18 1950: Anion Gap 10, Estimated GFR > 60, BUN/Creatinine Ratio 24.4, Glucose 155 H, Lactic Acid 1.3, Calcium 9.4, Total Bilirubin 2.6 H, Direct Bilirubin 1.8 H, AST 268 H, ALT 289 H, Alkaline Phosphatase 102, Lactate Dehydrogenase 1016 H, Troponin I < 0.01, Total Protein 6.9, Albumin 4.1, Triglycerides 148, Amylase 3785 H, Lipase > 28664 H, CBC w Diff NO MAN DIFF REQ, RBC 5.16, MCV 86.9, MCH 29.7, MCHC 34.2, RDW 12.2, MPV 8.3, Gran % 70.9, Lymphocytes % 19.4 L, Monocytes % 8.5, Eosinophils % 0.9, Basophils % 0.3, Absolute Granulocytes 6.2, Absolute Lymphocytes 1.7, Absolute Monocytes 0.7 H, Absolute Eosinophils 0.1, Absolute Basophils 0, Serum Alcohol < 10.0 Vital Signs Date Time Temp Pulse Resp B/P B/P Pulse O2 O2 Flow FiO2 Mean Ox Delivery Rate 05/31 0800 Room Air 05/31 0633 98.2 84 18 124/78 96 Room Air 05/30 2150 97.6 72 18 128/80 97 05/30 1445 97.3 72 18 138/84 96
--- NOTE | 2018-05-31 13:05 | Event Note ---
Event Note Event Note: Situation: Pt requests to leave AMA.
--- NOTE | 2018-05-31 13:11 | Patient Discharge Instructions ---
Discharge Instructions General Discharge Information You were seen/treated for: Pancreatitis Special Instructions: You have chosen to leave against medical advise Please seek immediate medical attention if you develop stomach pain or nausea/ vomiting Please seek medical attention if you develop fever/chills, or confusion Please follow up with Dr Lowry (Stomach doctor) within 1 week after discharge Acute Coronary Syndrome Inclusion Criteria At DC or during hospital stay patient has or had the following: Discharge Core Measures Meds if any: Prescribed or Continued at Discharge Meds if any: NOT Prescribed or Continued at Discharge Congestive Heart Failure Inclusion Criteria At DC or during hospital stay patient has or had the following: Discharge Core Measures Meds if any: Prescribed or Continued at Discharge Meds if any: NOT Prescribed or Continued at Discharge Cerebrovascular accident Inclusion Criteria At DC or during hospital stay patient has or had the following: CVA/TIA Diagnosis No Discharge Core Measures Meds if any: Prescribed or Continued at Discharge Meds if any: NOT Prescribed or Continued at Discharge Venous thromboembolism Discharge Core Measures - Per Current guidelines, there needs to be overlap - treatment for the first 5 days of Warfarin therapy. - If discharged on Warfarin prior to 5 days of - overlap therapy, the patient will need to be - assessed for post discharge needs including - *Post discharge parental anticoagulation - *Warfarin and/or parental anticoagulation education - *Follow up date to check INR post discharge Meds if any: Prescribed or Continued at Discharge Note: Overlap Therapy is Warfarin and Anticoagulant Meds if any: NOT Prescribed or Continued at Discharge
[2018-05-31] MEDS ORDERED: VITAMIN E400 UNIT PO (13:17)
== END 2018-05-31 13:30 | disposition left against medical advice (07) | DRG 282 ==
LOC: ERH 19:08 → ERHI 23:42 → 2NA 23:42 → ENRESERV 05-30 01:06 → 2NA 05-30 02:48 → ENPENDDIS 05-31 13:32
PROVIDERS: Internal Medicine; Pediatrics; Student in an Organized Health Care Education/Training Program
DX: K85.90 Acute pancreatitis without necrosis or infection, unspecified (principal); F14.90 Cocaine use, unspecified, uncomplicated; R74.0 Nonspecific elevation of levels of transaminase and lactic acid dehydrogenase [LDH]; E66.9 Obesity, unspecified; Z68.41 Body mass index [BMI] 40.0-44.9, adult; I10 Essential (primary) hypertension; Z86.73 Personal history of transient ischemic attack (TIA), and cerebral infarction without residual deficits; E78.5 Hyperlipidemia, unspecified; F31.9 Bipolar disorder, unspecified; J45.909 Unspecified asthma, uncomplicated; Z88.5 Allergy status to narcotic agent; Z88.8 Allergy status to other drugs, medicaments and biological substances; F43.10 Post-traumatic stress disorder, unspecified; G47.33 Obstructive sleep apnea (adult) (pediatric); K76.0 Fatty (change of) liver, not elsewhere classified; Z53.21 Procedure and treatment not carried out due to patient leaving prior to being seen by health care provider
CPT/HCPCS: 2NASP; ERO; 36415; 36592; 71046; 74177; 82436; 93005; 93010; G0480; J1200; J1650; J3490